=== PATIENT | male | born 1960 | race Hispanic/Latino ===

== ENCOUNTER 2021-02-01 12:02 | Emergency (ER) | payer SELFPAY ==
[~2021-02-01] VITALS: Ht 160 cm; Wt 74.8 kg
== END 2021-02-01 12:24 | disposition home or self-care (01) ==
LOC: ER 12:16
DX: R50.9 Fever, unspecified (principal); R06.02 Shortness of breath; R05 Cough; U07.1 COVID-19
CPT/HCPCS: 99282